=== PATIENT | male | born 1995 | race Caucasian/White ===

== ENCOUNTER 2021-03-07 13:04 | Emergency (ER) | payer OTHER ==
[2021-03-07 14:06] VITALS: BP 146/64; PULSE 92; RESP 18; TEMP 98.6
--- NOTE | 2021-03-07 14:06 | ED ---
General Adult HPI - General Source: patient, RN notes reviewed Mode of arrival: ambulatory Limitations: no limitations <Akira Thompson - Last Filed: 03/07/21 14:04> - History of Present Illness -: days(s) (1) Location: back (lumbar) Severity scale (1-10): 8 Quality: aching, constant Consistency: constant Improves with: none Worsens with: movement Associated Symptoms: denies other symptoms <Jenaro Barajas - Last Filed: 03/07/21 18:14> - General Stated complaint: back pain Time Seen by Provider: 03/07/21 13:45 - History of Present Illness Initial comments: 25-year-old male presents emergency Department chief complaint of low back pain. Patient states his been having issues over the last several years. Patient states he injured it while lifting weights. Patient states he bent over today and felt a pop. Patient's been having increasing low back pain. Patient had no prior imaging denies any bowel, bladder incontinence or retention or saddle anesthesias. No lower saddle paresthesias at this time he occasionally has pain radiates down into his legs. No abdominal pain no dysuria no hematuria. (Akira Thompson) This is a well-appearing 25-year-old male, alert and oriented 4, presents to emergency room with a family member complaining of low back pain. 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 He has never seen an orthopedic doctor but continues to have low back pain. He states that he exacerbated the back pain yesterday when he lifted his 40 pound dog. He states he is unable to take Flexeril because it makes him physically sick and nauseated. He denies any bowel or bladder incontinence. No fevers. (Jenaro Barajas) - Related Data Previous Rx's Medication Instructions Recorded Ibuprofen [Motrin] 600 mg PO Q8HR PRN #30 tab 03/07/21 Lidocaine 5% Patch [Lidoderm] 1 patch TOPICAL DAILY 14 Days #14 03/07/21 patch Allergies Allergy/AdvReac Type Severity Reaction Status Date / Time Cephalosporins Allergy Rash/Hives Verified 03/07/21 14:07 Penicillins Allergy Rash/Hives Verified 03/07/21 14:07 Review of Systems ROS Other: All systems not noted in ROS Statement are negative. <Dedoe,Akira M - Last Filed: 03/07/21 14:04> ROS Other: All systems not noted in ROS Statement are negative. <Jenaro Barajas - Last Filed: 03/07/21 18:14> ROS Statement: Those systems with pertinent positive or pertinent negative responses have been documented in the HPI. General Exam General appearance: alert, in no apparent distress Head exam: Present: atraumatic, normocephalic, normal inspection Eye exam: Present: normal appearance, EOMI. Absent: scleral icterus, conjunctival injection, periorbital swelling ENT exam: Present: normal exam, normal oropharynx, mucous membranes moist Neck exam: Present: normal inspection, full ROM. Absent: tenderness, meningismus, lymphadenopathy, thyromegaly Respiratory exam: Present: normal lung sounds bilaterally. Absent: respiratory distress, wheezes, rales, rhonchi, stridor Cardiovascular Exam: Present: regular rate, normal rhythm, normal heart sounds. Absent: systolic murmur, diastolic murmur, rubs, gallop, clicks GI/Abdominal exam: Present: soft. Absent: distended, tenderness, guarding, rebound, rigid Extremities exam: Present: normal inspection, full ROM, normal capillary refill. Absent: tenderness, pedal edema, joint swelling, calf tenderness Back exam: Present: normal inspection, full ROM, tenderness (ls spine), paraspinal tenderness (ls spine). Absent: CVA tenderness (R), CVA tenderness (L), rash noted Neurological exam: Present: alert, oriented X3, normal gait Psychiatric exam: Present: normal affect, normal mood Skin exam: Present: warm, dry, intact, normal color. Absent: rash, cyanosis, diaphoretic, petechiae, pallor <Jenaro Barajas - Last Filed: 03/07/21 18:14> Course Vital Signs 03/07/21 14:02 Temperature 98.6 F Pulse Rate 92 Respiratory 18 Rate Blood Pressure 146/64 O2 Sat by Pulse 96 Oximetry Medical Decision Making <Jenaro Barajas - Last Filed: 03/07/21 18:14> - Medical Decision Making This is a well-appearing 25-year-old male that presents to the emergency room with low back pain. Patient states he's had low back pain for several years however he exacerbated his pain when lifting his dog yesterday. X-ray of the LS-spine shows 5 lumbar vertebral bodies identified with satisfactory alignment no evidence of acute fracture or dislocation. There is no significant new disc space narrowing or subluxation had any lumbar level. Soft tissue appears unremarkable. Patient is able to ambulate with a steady gait, denies any bowel or bladder incontinence, no saddle anesthesia and no fevers. Pt was given toradol in the emergency room the Lidoderm patch. He was offered muscle relaxer and states that it makes him nauseous and declined. Upon discharge patient states he is feeling much better. He was given a prescription for Motrin and Lidoderm patches. He was directed to do low back exercises as provided and follow-up with orthopedics, return to the emergency room with a new or concerning symptoms. (Jenaro Barajas) Disposition <Akira Thompson - Last Filed: 03/07/21 14:04> Is patient prescribed a controlled substance at d/c from ED?: No Time of Disposition: 16:06 <Jenaro Barajas - Last Filed: 03/07/21 18:14> Clinical Impression: Back pain Disposition: HOME SELF-CARE Condition: Good Instructions (If sedation given, give patient instructions): Back Pain (ED), Lower Back Exercises (ED) Additional Instructions: Take Tylenol and Motrin for back pain. Use Lidoderm patches and follow-up with orthopedics for continuation of care. Return to the emergency room if any new or concerning symptoms. Prescriptions: Lidocaine 5% Patch [Lidoderm] 1 patch TOPICAL DAILY 14 Days #14 patch Ibuprofen [Motrin] 600 mg PO Q8HR PRN #30 tab PRN Reason: Pain Referrals: Linden Chanel MD [Primary Care Provider] - 1-2 days Ian Bronson MD [STAFF PHYSICIAN] - 1-2 days
--- NOTE | 2021-03-07 14:40 | XR ---
EXAMINATION TYPE: XR lumbar spine with bend/flex DATE OF EXAM: 03/07/2021 CLINICAL HISTORY: Low back pain after lifting injury several years ago. TECHNIQUE: Frontal, lateral, and dynamic flexion and extension lateral images of the lumbar spine are obtained. COMPARISON: None FINDINGS: There are 5 lumbar type vertebral bodies identified. The lumbar spine shows satisfactory alignment without evidence of acute fracture or dislocation. Vertebral body heights and disk space he ights are within normal limits. Dynamic imaging shows limited flexion, but there is no significant new disc space narrowing or focal subluxation at any lumbar level identified. The overlying soft tiss ue appears unremarkable. IMPRESSION: As above spine.
[2021-03-07] MEDS ORDERED: ORPHENADRINE 30 MG/ML 2 ML VIAL IM STA (15:40)
[2021-03-07] MEDS ORDERED: KETOROLAC 15 MG/ML 1 ML VIAL IM STA (15:40)
[2021-03-07] MEDS ORDERED: LIDOCAINE 5% PATCH TOPICAL SCH (16:00)
== END 2021-03-07 16:29 | disposition home or self-care (01) ==
LOC: EC 13:04
DX: M54.59 Other low back pain (principal); Z88.0 Allergy status to penicillin
CPT/HCPCS: 99283; 96372; 72114; J1885

== ENCOUNTER 2022-11-17 16:59 | Observation (INO) | payer OTHER ==
[2022-11-17] MEDS ORDERED: SODIUM CHLORIDE 0.9% 1,000 ML IV STA ×3 (17:38→18:17)
[2022-11-17] MEDS ORDERED: KETOROLAC 15 MG/ML 1 ML VIAL IVP STA (17:38)
[2022-11-17] MEDS ORDERED: ONDANSETRON 4 MG/2 ML VIAL IVP STA (17:38)
[2022-11-17] MEDS ORDERED: PANTOPRAZOLE 40 MG/10 ML VIAL IVP STA (17:38)
[2022-11-17] MEDS ORDERED: MORPHINE SULFATE 4 MG/ML SYRINGE IVP STA (17:39)
[2022-11-17 18:02] LABS: Basophils # (A) 0.1 k/uL (0-0.2); Basophils % (A) 1 %; Eosinophils # (A) 0.4 k/uL (0-0.7); Eosinophils % (A) 4 %; HCT 47.4 % (39.0-53.0); Lymphocytes # (A) 3.2 k/uL (1.0-4.8); Lymphocytes % (A) 33 %; MCH 28.2 pg (25.0-35.0); MCHC 33.7 g/dL (31.0-37.0); MCV 83.9 fL (80.0-100.0); Mean Platelet Volume 7.5; Monocytes # (A) 0.5 k/uL (0-1.0); Monocytes % (A) 5 %; Neutrophils # (A) 5.6 k/uL (1.3-7.7); Neutrophils % (A) 57 %; Platelet Count 300 k/uL (150-450); RBC 5.65 m/uL (4.30-5.90); RDW 13.6 % (11.5-15.5); WBC 9.7 k/uL (3.8-10.6)
[2022-11-17 18:03] LABS: Appearance,Urine Clear (Clear); Bilirubin,Urine Negative (Negative); Blood,Urine Negative (Negative); Color,Urine Light Yellow; Glucose,Urine (UA) Negative (Negative); Ketones,Urine Negative (Negative); Leukocyte Esterase,Urine Negative (Negative); Nitrite,Urine Negative (Negative); Protein,Urine Negative (Negative); Specific Gravity,Urine 1.017 (1.001-1.035); Urobilinogen,Urine <2.0 mg/dL (<2.0)
[2022-11-17 18:14] LABS: ALT 70 U/L (4-49); AST 41 U/L (17-59); African American GFR (CKD) >90 (>60 ml/min/1.73 sqM); Alkaline Phosphatase 50 U/L (38-126); Amylase 57 U/L (30-110); Anion Gap 14 mmol/L; Blood Urea Nitrogen 10 mg/dL (9-20); Calcium 10.2 mg/dL (8.4-10.2); Carbon Dioxide 27 mmol/L (22-30); Chloride 101 mmol/L (98-107); Glucose 99 mg/dL (74-99); Lipase 47 U/L (23-300); Non-African American GFR(CKD) >90 (>60 ml/min/1.73 sqM); Sodium 142 mmol/L (137-145); Total Bilirubin 0.8 mg/dL (0.2-1.3); Total Protein 8.2 g/dL (6.3-8.2)
[2022-11-17 18:15] LABS: Potassium 4.5 mmol/L (3.5-5.1)
[2022-11-17 18:23] LABS: INR 0.9 (<1.2); Partial Thromboplastin Time 24.2 sec (22.0-30.0)
--- NOTE | 2022-11-17 18:56 | US ---
EXAMINATION TYPE: US gallbladder DATE OF EXAM: 11/17/2022 COMPARISON: NONE CLINICAL INDICATION: Male, 27 years old with history of ruq pain, nausea; Pain TECHNIQUE: Multiple sonographic images of the right upper quadrant are obtained. FINDINGS: EXAM MEASUREMENTS: Liver Length: 19.9 cm Gallbladder Wall: 0.2 cm CBD: 0.6 cm Right Kidney: 10.6 x 5.1 x 5.4 cm DEVULCANIZER OPERATOR NOTES: Large pt body habitus, unable to tolerate probe pressure during exam- difficult to scan Pancreas: Obscured by bowel gas Liver: Enlarged, very difficult to penetrate Gallbladder: wnl Evidence for sonographic Bronson's sign: Yes CBD: wnl Right Kidney: No evidence of hydro, lower pole gassed out IMPRESSION: 1. Hepatomegaly correlate for hepatocellular disease. 2. No gallstones. Common bile duct measures at the upper limits of normal at 6 mm correlate clinicall y.
[2022-11-17] MEDS ORDERED: LORazepam 2 MG/ML INJ IV STA (19:09)
--- NOTE | 2022-11-17 19:54 | CT ---
EXAMINATION TYPE: CT angio abdomen pelvis DATE OF EXAM: 11/17/2022 7:19 PM COMPARISON: None HISTORY: Elevated LA, RUQ abdominal pain. CT DLP: 2305.8 mGycm Automated exposure control for dose reduction was used. TECHNIQUE: Performed with IV Contrast, patient injected with 100 cc mL of Isovue 370. . FINDINGS: Shotty subcentimeter lymph nodes are seen in the abdomen. Lungs are clear. Liver is enlarged with diffuse low attenuation compatible with hepatic steatosis. No hydronephrosis. There is a nonobstructing 1 mm punctate left lower pole renal calculus. Pancreas a nd adrenal glands normal. Spleen homogeneous. Celiac trunk and SMA enhance normally. The hepatic artery is diminutive. Correlate clinically. Bowel gas pattern nonspecific. No evidence of obstruction. Appendix normal. Bladder partially distend ed. No significant wall thickening. No free air or free fluid. Aorta of normal caliber with no eviden ce of aneurysm. Retroaortic left renal vein incidentally noted. No gallstones. IMPRESSION: 1. HEPATOMEGALY CORRELATE FOR HEPATOCELLULAR DISEASE\HEPATIC STEATOSIS. 2. PUNCTATE NONOBSTRUCTING 1 MM LOWER POLE LEFT RENAL CALCULUS.
[2022-11-17] MEDS ORDERED: KETOROLAC 15 MG/ML 1 ML VIAL IVP PRN (22:19)
[2022-11-17] MEDS ORDERED: NALOXONE 0.4 MG/ML 1 ML VIAL IV PRN (22:19)
[2022-11-17] MEDS ORDERED: ONDANSETRON 4 MG/2 ML VIAL IVP PRN (22:19)
--- NOTE | 2022-11-17 22:22 | ED ---
General Adult HPI - General Chief complaint: Abdominal Pain Stated complaint: R side pain Time Seen by Provider: 11/17/22 17:05 Source: patient, RN notes reviewed, old records reviewed Mode of arrival: ambulatory Limitations: no limitations - History of Present Illness Initial comments: Patient is a 27-year-old male who presents emergency Department complaining of abdominal pain for the last 2-3 days. He endorses right-sided abdominal pain. Intermittent nausea but no vomiting. Denies any dysuria or hematuria. Denies any constipation, diarrhea. Denies any chest pain or shortness of breath. Denies any fevers or chills. No other acute complaints at this time. Presents for further evaluation at this time. - Related Data Home Medications Medication Instructions Recorded Confirmed Levothyroxine Sodium [Synthroid] 25 mcg PO DAILY@05011/17/22 11/17/22 lamoTRIgine [LaMICtal] 200 mg PO DAILY@0500 11/17/22 11/17/22 Allergies Allergy/AdvReac Type Severity Reaction Status Date / Time Cephalosporins Allergy Rash/Hives Verified 11/17/22 19:42 Penicillins Allergy Rash/Hives Verified 11/17/22 19:42 Review of Systems ROS Statement: Those systems with pertinent positive or pertinent negative responses have been documented in the HPI. Review of Systems: CONST: Denies fever EYES: Denies blurry vision ENT: Denies nasal congestion C/V: Denies Chest pain RESP: Denies shortness of breath GI: Endorses abdominal pain : Denies dysuria SKIN: Denies rash. MSK: Denies joint pain. NEURO: Denies headache ROS Other: All systems not noted in ROS Statement are negative. Past Medical History Past Medical History: Seizure Disorder, Thyroid Disorder History of Any Multi-Drug Resistant Organisms: None Reported Past Surgical History: Ear Surgery Additional Past Surgical History / Comment(s): neck surgery Past Psychological History: No Psychological Hx Reported Smoking Status: Current every day smoker Past Alcohol Use History: Occasional Past Drug Use History: Marijuana General Exam - General Exam Comments Initial Comments: General: Appears in mild distress. HEAD: Normal with no signs of head trauma. EYES: PERRLA, EOMI, conjunctiva normal, no discharge. ENT: Hearing grossly intact, normal oropharynx. RESPIRATORY: Clear breath sounds bilaterally. No wheezes, rales, or rhonchi. C/V: Regular rate and rhythm. S1 and S2 auscultated, no edema, peripheral pulses 2+ and intact throughout ABD: Abdomen is soft, nondistended. Tender to palpation and specifically over the right side of the abdomen. No guarding. No rebound tenderness. No peritoneal signs. No significant flank pain. No CVA tenderness to percussion. EXT: Normal range of motion, no obvious deformity SKIN: No rashes or lesions observed on exposed skin. NEURO: Alert and oriented 4. Limitations: no limitations Course Vital Signs 11/17/22 11/17/22 11/17/22 17:02 18:08 21:00 Temperature 98.4 F Pulse Rate 67 89 Respiratory 16 16 Rate Blood Pressure 139/85 126/82 117/68 O2 Sat by Pulse 98 98 Oximetry Medical Decision Making - Medical Decision Making Was pt. sent in by a medical professional or institution (, PA, [employer], urgent care, hospital, or snf...) When possible be specific @ -No Did you speak to anyone other than the patient for history (EMS, parent, family, police, friend...)? What history was obtained from this source @ -No Did you review nursing and triage notes (agree or disagree)? Why? @ -I reviewed and agree with nursing and triage notes Were old charts reviewed (outside hosp., previous admission, EMS record, old EKG, old radiological studies, urgent care reports/EKG's, snf records)? Report findings @ -No old charts were reviewed Differential Diagnosis (chest pain, altered mental status, abdominal pain women, abdominal pain men, vaginal bleeding, weakness, fever, dyspnea, syncope, headache, dizziness, GI bleed, back pain, seizure, CVA, palpatations, mental health, musculoskeletal)? @ -Differential Abdominal Pain Men: Appendicitis, cholecystitis, diverticulosis, ischemic bowel, pancreatitis, hepatitis, UTI, gastroenteritis, AAA, incarcerated hernia, bowel obstruction, constipation, inflammatory bowel, hepatitis, peptic ulcer disease, splenic infarction, perforated viscus, testicular torsion, this is not meant to be an all-inclusive list EKG interpreted by me (3pts min.). @ -None done X-rays interpreted by me (1pt min.). @ -None done CT interpreted by me (1pt min.). @ -CTA of the abdomen and pelvis reveals no obvious abnormality other than hepatomegaly. Patient has a non-complicated 1 mm left renal calculus. U/S interpreted by me (1pt. min.). @ -Ultrasound reveals no evidence of cholecystitis. What testing was considered but not performed or refused? (CT, X-rays, U/S, labs)? Why? @ -None What meds were considered but not given or refused? Why? @ -None Did you discuss the management of the patient with other professionals (professionals i.e. DrAly, PA, [employer], lab, RT, psych nurse, high school social studies tutor, carpenter labor supervisor, teacher, marketing officer, case resource manager)? Give summary @ -I spoke with the admitting team, ENRIKE Desai of [facility] accepted the admission. Was smoking cessation discussed for >3mins.? @ -No Was critical care preformed (if so, how long)? @ -No Were there social determinants of health that impacted care today? How? (Homelessness, low income, unemployed, alcoholism, drug addiction, transportation, low edu. Level, literacy, decrease access to med. care, snf, rehab)? @ -No Was there de-escalation of care discussed even if they declined (Discuss DNR or withdrawal of care, Hospice)? DNR status @ -No What co-morbidities impacted this encounter? (DM, HTN, Smoking, COPD, CAD, Cancer, CVA, ARF, Chemo, Hep., AIDS, mental health diagnosis, sleep apnea, morbid obesity)? @ -None Was patient admitted / discharged? Hospital course, mention meds given and route, prescriptions, significant lab abnormalities, going to OR and other per tinent info. @ -Based on the patient's presentation and physical exam, I'm concerned for acute intra-abdominal process for the patient's current symptoms. We'll obtain abdominal labs as well as bilateral ultrasound. He'll be symptomatically treated with IV fluids, Toradol, morphine, Zofran, Protonix. Patient was in agreement this plan. Vital signs within acceptable limits. Gallbladder ultrasound unremarkable. Labs remarkable for lactic acidosis 5.9 as well as ALT of 70. No other significant findings. Lactic acidosis likely related to hepatocellular disease as well as dehydration as he has not been eating and drinking much. Remainder the patient's labs are completely unremarkable. Alcohol level added on and is negative. We will obtain a CT angiogram for abdominal pain out of proportion to exam to evaluate for any intra-abdominal process. Patient in agreement this plan. I do not believe that the lactic acid is related to infection. CT unremarkable. Shows hepatomegaly an uncomplicated right nephrolithiasis. On reevaluation, patient is resting comfortably. Due to his elevated lactic acid as well as his abdominal pain and did want to admit him to the hospital for further monitoring. He was in agreement this plan. He received a total of 2 L fluid bolus was placed on maintenance fluids. I spoke with the admitting team, ENRIKE Desai of [facility] accepted the admission. Undiagnosed new problem with uncertain prognosis? @ -No Drug Therapy requiring intensive monitoring for toxicity (Heparin, Nitro, Insulin, Cardizem)? @ -No Were any procedures done? @ -No Diagnosis/symptom? @ -Lactic acidosis of unknown etiology, likely related to hepatocellular disease and dehydration Acute, or Chronic, or Acute on Chronic? @ -Acute Uncomplicated (without systemic symptoms) or Complicated (systemic symptoms)? @ -Uncomplicated Side effects of treatment? @ -No Exacerbation, Progression, or Severe Exacerbation? @ -No Poses a threat to life or bodily function? How? (Chest pain, USA, ND, pneumonia, PE, COPD, DKA, ARF, appy, cholecystitis, CVA, Diverticulitis, Homicidal, Suicidal, threat to staff... and all critical care pts) @ -Potentially Diagnosis/symptom? @ -Abdominal pain of unknown etiology Acute, or Chronic, or Acute on Chronic? @ -Acute Uncomplicated (without systemic symptoms) or Complicated (systemic symptoms)? @ -Complicated Side effects of treatment? @ -none Exacerbation, Progression, or Severe Exacerbation] @ -no Poses a threat to life or bodily function? @ -no - Lab Data Result diagrams: 11/17/22 17:47 11/17/22 17:47 Lab Results 11/17/22 11/17/22 11/17/22 Range/Units 17:47 17:47 17:47 WBC 9.7 (3.8-10.6) k/uL RBC 5.65 (4.30-5.90) m/uL Hgb 16.0 (13.0-17.5) gm/dL Hct 47.4 (39.0-53.0) % MCV 83.9 (80.0-100.0) fL MCH 28.2 (25.0-35.0) pg MCHC 33.7 (31.0-37.0) g/dL RDW 13.6 (11.5-15.5) % Plt Count 300 (150-450) k/uL MPV 7.5 Neutrophils % 57 % Lymphocytes % 33 % Monocytes % 5 % Eosinophils % 4 % Basophils % 1 % Neutrophils # 5.6 (1.3-7.7) k/uL Lymphocytes # 3.2 (1.0-4.8) k/uL Monocytes # 0.5 (0-1.0) k/uL Eosinophils # 0.4 (0-0.7) k/uL Basophils # 0.1 (0-0.2) k/uL PT 10.0 (9.0-12.0) sec INR 0.9 (<1.2) APTT 24.2 (22.0-30.0) sec Sodium (137-145) mmol/L Potassium (3.5-5.1) mmol/L Chloride (98-107) mmol/L Carbon Dioxide (22-30) mmol/L Anion Gap mmol/L BUN (9-20) mg/dL Creatinine (0.66-1.25) mg/dL Est GFR (CKD-EPI)AfAm (>60 ml/min/1.73 sqM) Est GFR (CKD-EPI)NonAf (>60 ml/min/1.73 sqM) Glucose (74-99) mg/dL Lactic Ac Sepsis Rflx Plasma Lactic Acid Alberto (0.7-2.0) mmol/L Calcium (8.4-10.2) mg/dL Total Bilirubin (0.2-1.3) mg/dL AST (17-59) U/L ALT (4-49) U/L Alkaline Phosphatase (38-126) U/L Total Protein (6.3-8.2) g/dL Albumin (3.5-5.0) g/dL Amylase (30-110) U/L Lipase (23-300) U/L Urine Color Light Yellow Urine Appearance Clear (Clear) Urine pH 6.0 (5.0-8.0) Ur Specific Carnegie 1.017 (1.001-1.035) Urine Protein Negative (Negative) Urine Glucose (UA) Negative (Negative) Urine Ketones Negative (Negative) Urine Blood Negative (Negative) Urine Nitrite Negative (Negative) Urine Bilirubin Negative (Negative) Urine Urobilinogen <2.0 (<2.0) mg/dL Ur Leukocyte Esterase Negative (Negative) Serum Alcohol mg/dL 11/17/22 11/17/22 11/17/22 Range/Units 17:47 17:47 18:14 WBC (3.8-10.6) k/uL RBC (4.30-5.90) m/uL Hgb (13.0-17.5) gm/dL Hct (39.0-53.0) % MCV (80.0-100.0) fL MCH (25.0-35.0) pg MCHC (31.0-37.0) g/dL RDW (11.5-15.5) % Plt Count (150-450) k/uL MPV Neutrophils % % Lymphocytes % % Monocytes % % Eosinophils % % Basophils % % Neutrophils # (1.3-7.7) k/uL Lymphocytes # (1.0-4.8) k/uL Monocytes # (0-1.0) k/uL Eosinophils # (0-0.7) k/uL Basophils # (0-0.2) k/uL PT (9.0-12.0) sec INR (<1.2) APTT (22.0-30.0) sec Sodium 142 (137-145) mmol/L Potassium 4.5 (3.5-5.1) mmol/L Chloride 101 (98-107) mmol/L Carbon Dioxide 27 (22-30) mmol/L Anion Gap 14 mmol/L BUN 10 (9-20) mg/dL Creatinine 0.87 (0.66-1.25) mg/dL Est GFR (CKD-EPI)AfAm >90 (>60 ml/min/1.73 sqM) Est GFR (CKD-EPI)NonAf >90 (>60 ml/min/1.73 sqM) Glucose 99 (74-99) mg/dL Lactic Ac Sepsis Rflx Y Plasma Lactic Acid Alberto 5.9 H* (0.7-2.0) mmol/L Calcium 10.2 (8.4-10.2) mg/dL Total Bilirubin 0.8 (0.2-1.3) mg/dL AST 41 (17-59) U/L ALT 70 H (4-49) U/L Alkaline Phosphatase 50 (38-126) U/L Total Protein 8.2 (6.3-8.2) g/dL Albumin 5.0 (3.5-5.0) g/dL Amylase 57 (30-110) U/L Lipase 47 (23-300) U/L Urine Color Urine Appearance (Clear) Urine pH (5.0-8.0) Ur Specific [place] (1.001-1.035) Urine Protein (Negative) Urine Glucose (UA) (Negative) Urine Ketones (Negative) Urine Blood (Negative) Urine Nitrite (Negative) Urine Bilirubin (Negative) Urine Urobilinogen (<2.0) mg/dL Ur Leukocyte Esterase (Negative) Serum Alcohol mg/dL 11/17/22 Range/Units 19:12 WBC (3.8-10.6) k/uL RBC (4.30-5.90) m/uL Hgb (13.0-17.5) gm/dL Hct (39.0-53.0) % MCV (80.0-100.0) fL MCH (25.0-35.0) pg MCHC (31.0-37.0) g/dL RDW (11.5-15.5) % Plt Count (150-450) k/uL MPV Neutrophils % % Lymphocytes % % Monocytes % % Eosinophils % % Basophils % % Neutrophils # (1.3-7.7) k/uL Lymphocytes # (1.0-4.8) k/uL Monocytes # (0-1.0) k/uL Eosinophils # (0-0.7) k/uL Basophils # (0-0.2) k/uL PT (9.0-12.0) sec INR (<1.2) APTT (22.0-30.0) sec Sodium (137-145) mmol/L Potassium (3.5-5.1) mmol/L Chloride (98-107) mmol/L Carbon Dioxide (22-30) mmol/L Anion Gap mmol/L BUN (9-20) mg/dL Creatinine (0.66-1.25) mg/dL Est GFR (CKD-EPI)AfAm (>60 ml/min/1.73 sqM) Est GFR (CKD-EPI)NonAf (>60 ml/min/1.73 sqM) Glucose (74-99) mg/dL Lactic Ac Sepsis Rflx Plasma Lactic Acid Alberto (0.7-2.0) mmol/L Calcium (8.4-10.2) mg/dL Total Bilirubin (0.2-1.3) mg/dL AST (17-59) U/L ALT (4-49) U/L Alkaline Phosphatase (38-126) U/L Total Protein (6.3-8.2) g/dL Albumin (3.5-5.0) g/dL Amylase (30-110) U/L Lipase (23-300) U/L Urine Color Urine Appearance (Clear) Urine pH (5.0-8.0) Ur Specific [place] (1.001-1.035) Urine Protein (Negative) Urine Glucose (UA) (Negative) Urine Ketones (Negative) Urine Blood (Negative) Urine Nitrite (Negative) Urine Bilirubin (Negative) Urine Urobilinogen (<2.0) mg/dL Ur Leukocyte Esterase (Negative) Serum Alcohol <10 mg/dL Disposition Clinical Impression: Lactic acidosis, Abdominal pain of unknown etiology, Hepatomegaly Disposition: ADMITTED IP TO THIS [facility] Condition: Stable Referrals: Alvaro Lyn MD [Primary Care Provider] - 1-2 days Time of Disposition: 21:35
[2022-11-18] MEDS: MORPHINE SULFATE 4 MG/ML SYRINGE IV PRN ×4 (01:00→18:08)
[2022-11-18 06:53] LABS: Basophils # (A) 0.1 k/uL (0-0.2); Basophils % (A) 1 %; Eosinophils # (A) 0.3 k/uL (0-0.7); Eosinophils % (A) 3 %; HCT 41.1 % (39.0-53.0); Lymphocytes # (A) 3.2 k/uL (1.0-4.8); Lymphocytes % (A) 36 %; MCH 28.4 pg (25.0-35.0); MCHC 34.1 g/dL (31.0-37.0); MCV 83.4 fL (80.0-100.0); Monocytes # (A) 0.5 k/uL (0-1.0); Monocytes % (A) 6 %; Neutrophils # (A) 4.7 k/uL (1.3-7.7); Neutrophils % (A) 53 %; Platelet Count 256 k/uL (150-450); RBC 4.93 m/uL (4.30-5.90); RDW 13.3 % (11.5-15.5); WBC 8.8 k/uL (3.8-10.6)
[2022-11-18 07:13] LABS: African American GFR (CKD) >90 (>60 ml/min/1.73 sqM); Anion Gap 11 mmol/L; Blood Urea Nitrogen 14 mg/dL (9-20); Calcium 8.7 mg/dL (8.4-10.2); Carbon Dioxide 23 mmol/L (22-30); Chloride 106 mmol/L (98-107); Glucose 93 mg/dL (74-99); Non-African American GFR(CKD) >90 (>60 ml/min/1.73 sqM); Potassium 4.5 mmol/L (3.5-5.1); Sodium 140 mmol/L (137-145)
[2022-11-18] MEDS: LEVOTHYROXINE 25 MCG TAB PO SCH (08:36)
[2022-11-18] MEDS: lamoTRIgine 100 MG TAB PO SCH (08:36)
--- NOTE | 2022-11-18 12:37 | P.HPIM ---
History of Present Illness H&P Date: 11/18/22 History of present illness; patient is a 27-year-old gentleman with no significa nt past medical history presented to the ER because of abdominal pain. Patient stated that he was all right 2 days ago when he started having right-sided abdominal pain. Abdominal pain was intermittent, associated with nausea but no vomiting. Denies any altered bowel movements. Denies any blood in the stools. Denies any loss of appetite. Denies any fever or chills. Because of his abdominal pain, he came to ER Initial lab work done in the ER showed WBC was 9.7, hemoglobin 16, platelet count 300, sodium 142, potassium 4.5, BUN 10, creatinine 0.87, lactate 5.9 UA negative for infection Serum alcohol level less than 10 Ultrasound abdominal done showed hepatomegaly, correlate for hepatocellular disease. CT abdomen and pelvis done showed hepatomegaly, showed 1 mL lower pole renal calculus Patient admitted to medicine service REVIEW OF SYSTEMS: CONSTITUTIONAL: No fever, no malaise, no fatigue. HEENT: No recent visual problems or hearing problems. Denied any sore throat. CARDIOVASCULAR: No chest pain, orthopnea, PND, no palpitations, no syncope. PULMONARY: No shortness of breath, no cough, no hemoptysis. GASTROINTESTINAL: As mentioned in HPI NEUROLOGICAL: No headaches, no weakness, no numbness. HEMATOLOGICAL: Denies any bleeding or petechiae. GENITOURINARY: Denies any burning micturition, frequency, or urgency. MUSCULOSKELETAL/RHEUMATOLOGICAL: Denies any joint pain, swelling, or any muscle pain. ENDOCRINE: Denies any polyuria or polydipsia. The rest of the 14-point review of systems is negative. PHYSICAL EXAMINATION: GENERAL: The patient is alert and oriented x3, not in any acute distress. Well developed, well nourished. HEENT: Pupils are round and equally reacting to light. EOMI. No scleral icterus. No conjunctival pallor. Normocephalic, atraumatic. No pharyngeal erythema. No thyromegaly. CARDIOVASCULAR: S1 and S2 present. No murmurs, rubs, or gallops. PULMONARY: Chest is clear to auscultation, no wheezing or crackles. ABDOMEN: Soft, tenderness right upper quadrant, no guarding. No palpable organomegaly. MUSCULOSKELETAL: No joint swelling or deformity. EXTREMITIES: No cyanosis, clubbing, or pedal edema. NEUROLOGICAL: Gross neurological examination did not reveal any focal deficits. SKIN: No rashes. Assessment and plan Abdominal pain Lactic acidosis Hepatomegaly Nonobstructing left renal calculus Monitor vital signs Monitor CBC Monitor CMP Ordered hepatitis panel Continue IV fluids Continue antiemetics Continue pain management ID consulted Surgery consulted Labs and medication were reviewed.. Continue same treatment. Continue with symptomatic treatment. Resume home medication. Monitor labs and vitals. DVT and GI prophylaxis. Further recommendations as per clinical course of the patient Dictation was produced using [employer] dictation software. please excuse any grammatical, word or spelling errors. Past Medical History Past Medical History: Seizure Disorder, Thyroid Disorder History of Any Multi-Drug Resistant Organisms: None Reported Past Surgical History: Ear Surgery Additional Past Surgical History / Comment(s): neck surgery Past Psychological History: No Psychological Hx Reported Smoking Status: Current every day smoker Past Alcohol Use History: Occasional Past Drug Use History: Marijuana Medications and Allergies Home Medications Medication Instructions Recorded Confirmed Type Levothyroxine Sodium [Synthroid] 25 mcg PO DAILY@0500 11/17/22 11/17/22 History lamoTRIgine [LaMICtal] 200 mg PO DAILY@0500 11/17/22 11/17/22 History Allergies Allergy/AdvReac Type Severity Reaction Status Date / Time Cephalosporins Allergy Rash/Hives Verified 11/17/22 19:42 Penicillins Allergy Rash/Hives Verified 11/17/22 19:42 Physical Exam Vitals: Vital Signs Temp Pulse Pulse Resp BP BP Pulse Ox 11/18/22 06:55 98 F 58 L 17 107/68 98 11/18/22 02:00 97.8 F 62 16 127/67 94 L 11/18/22 00:30 98.2 F 68 16 140/63 98 11/17/22 23:00 95 16 124/71 98 11/17/22 21:00 89 16 117/68 98 11/17/22 18:08 126/82 11/17/22 17:02 98.4 F 67 16 139/85 98 Intake and Output 11/17/22 11/18/22 11/18/22 22:59 06:59 14:59 Other: # Voids 1 Weight 120.202 kg Results CBC & Chem 7: 11/18/22 06:09 10/01/23 06:09 Labs: Abnormal Lab Results - Last 24 Hours (Table) 11/17/22 11/17/22 Range/Units 17:47 17:47 Plasma Lactic Acid Alberto 5.9 H* (0.7-2.0) mmol/L ALT 70 H (4-49) U/L
[2022-11-18] MEDS ORDERED: HYDROcodone/APAP 5-325MG 1 EACH TAB PO PRN (13:36)
[2022-11-18 15:24] LABS: Hepatitis A Antibody IgM Nonreactive; Hepatitis B Core IgM Nonreactive; Hepatitis B Surface Antigen Nonreactive; Hepatitis C IgG Antibody Nonreactive
--- NOTE | 2022-11-18 22:58 | P.CONS ---
History of Present Illness - Reason for Consult Consult date: 11/18/22 Hepatitis questionable Requesting physician: Nick Coello - Chief Complaint Abdominal pain x few days - History of Present Illness Patient is a 27-year-old male with a past medical history significant for heavy drinking few years ago still drinks but occasionally and also have a history of IV drug use with the patient mention he has quit patient presenting to the hospital last night for evaluation of increasing abdominal pain that has been getting worse over the last 2 to 3 days patient pain is mostly in the right upper abdominal area describing it to be sharp that at times eases but does not go completely away intensity can be as high as 10 out of 10 with intermittent nausea but no vomiting denies any diarrhea or constipation or high-grade fever on presentation to the hospital patient was afebrile and no fever has been recorded subsequently patient was not tachycardic hypotensive or hypoxic patient did have a normal white count he did have a elevated lactic acid of 5.9 has subsequent normalized ALT was 70 urine is negative hepatitis panel was negative alcohol level was less than [address] a [address] abdominal pelvis hepatomegaly correlate for hepatocellular disease and left renal calculus infectious he was consulted with concern for hepatitis questionable Review of Systems Positive point and negatives has been mentioned in the HPI, complete review of systems was performed and all other systems are negative Past Medical History Past Medical History: Seizure Disorder, Thyroid Disorder History of Any Multi-Drug Resistant Organisms: None Reported Past Surgical History: Ear Surgery Additional Past Surgical History / Comment(s): neck surgery Past Psychological History: No Psychological Hx Reported Smoking Status: Current every day smoker Past Alcohol Use History: Occasional Past Drug Use History: Marijuana Medications and Allergies Home Medications Medication Instructions Recorded Confirmed Type Levothyroxine Sodium [Synthroid] 25 mcg PO DAILY@0500 11/17/22 11/17/22 History lamoTRIgine [LaMICtal] 200 mg PO DAILY@0500 11/17/22 11/17/22 History HYDROcodone/APAP 5-325MG [[place] 1 each PO Q6HR PRN #10 tab 11/19/22 Rx 5-325] Allergies Allergy/AdvReac Type Severity Reaction Status Date / Time Cephalosporins Allergy Rash/Hives Verified 11/17/22 19:42 Penicillins Allergy Rash/Hives Verified 11/17/22 19:42 Physical Exam Vitals: Vital Signs Temp Pulse Pulse Resp BP BP Pulse Ox 11/18/22 06:55 98 F 58 L 17 107/68 98 11/18/22 02:00 97.8 F 62 16 127/67 94 L 11/18/22 00:30 98.2 F 68 16 140/63 98 11/17/22 23:00 95 16 124/71 98 11/17/22 21:00 89 16 117/68 98 11/17/22 18:08 126/82 11/17/22 17:02 98.4 F 67 16 139/85 98 Intake and Output 11/17/22 11/18/22 11/18/22 22:59 06:59 14:59 Other: # Voids 1 Weight 120.202 kg GENERAL DESCRIPTION: Middle-aged male lying in bed, no distress. No tachypnea or accessory muscle of respiration use. HEENT: Shows Pallor , no scleral icterus. Oral mucous membrane is dry. No pharyngeal erythema or thrush NECK: Trachea central, no thyromegaly. LUNGS: Unlabored breathing. Clear to auscultation anteriorly. No wheeze or crackle. HEART: S1, S2, regular rate and rhythm. No loud murmur ABDOMEN: Soft, mild right upper quadrant tenderness , noguarding or rigidity EXTREMITIES: No edema of feet. SKIN: No rash, no masses palpable. NEUROLOGICAL: The patient is awake, alert, oriented x3, mood and affect normal. Results CBC & Chem 7: 11/19/22 04:53 11/19/22 04:53 Labs: Abnormal Lab Results - Last 24 Hours (Table) 11/17/22 11/17/22 Range/Units 17:47 17:47 Plasma Lactic Acid Alberto 5.9 H* (0.7-2.0) mmol/L ALT 70 H (4-49) U/L Assessment and Plan (1) Abdominal pain of unknown etiology Status: Acute Code(s): R10.9 - UNSPECIFIED ABDOMINAL PAIN SNOMED Code(s): 903399420 (2) Hepatomegaly Status: Acute Code(s): R16.0 - HEPATOMEGALY, NOT ELSEWHERE CLASSIFIED SNOMED Code(s): 39349328 Plan: 1patient presented hospital right upper quadrant abdominal pain in this patient who also have a mild tenderness right upper quadrant area and a question of possible hepatocellular disease CT abdominal pelvis shows mostly hepatomegaly but did not mention any abnormality to the gallbladder patient did have mildly elevated ALT as well within the normal and the patient do have a risk factor for hepatitis however hepatitis B and C were negative as well as A 2-patient with a cephalosporin and penicillin allergy that will limit the number of antibiotics safe to use 3-we will check inflammatory markers and await HIDA scan 4-we will hold on any empiric antibiotic therapy at this point as patient does not look toxic no fever or elevated white count We will follow on clinical condition and cultures to further adjust medication if needed Thank you for this consultation we will follow the patient along with you Dictation was produced using [employer] dictation software. please excuse any grammatical, word or spelling errors. Time with Patient: Greater than 30
[2022-11-19] MEDS: MORPHINE SULFATE 4 MG/ML SYRINGE IV PRN (00:42)
[2022-11-19] MEDS: lamoTRIgine 100 MG TAB PO SCH (05:01)
[2022-11-19] MEDS: LEVOTHYROXINE 25 MCG TAB PO SCH (05:01)
[2022-11-19 07:35] VITALS: RESP 16
[2022-11-19 08:59] LABS: Eosinophils # (A) 0.27 X 10*3/uL (0.04-0.35); Eosinophils % (A) 2.7 %; HCT 44.3 % (39.6-50.0); HGB 15.1 d/dL (13.0-17.0); Lymphocytes # (A) 3.78 X 10*3/uL (0.90-5.00); Lymphocytes % (A) 38.3 %; MCH 27.9 pg (27.0-32.0); MCHC 34.1 d/dL (32.0-37.0); MCV 81.9 FL (80.0-97.0); Mean Platelet Volume 9.9 FL (9.5-12.2); Monocytes # (A) 0.53 X 10*3/uL (0.20-1.00); Monocytes % (A) 5.4 %; NRBC Per 100 WBC 0 X 10*3/uL (0.00-0.01); Neutrophils # (A) 5.16 X 10*3/uL (1.80-7.70); Neutrophils % (A) 52.4 %; Platelet Count 308 X 10*3/uL (140-440); RBC 5.41 X 10*6/uL (4.40-5.60); RDW 12.9 % (11.5-14.5); WBC 9.86 X 10*3/uL (4.50-10.00)
--- NOTE | 2022-11-19 10:18 | NM ---
Nuclear medicine hepatobiliary scan. HISTORY: Pain. DOSAGE: The patient received 0.0024 CCK micrograms and 4.9 mCi of Technetium 99m Choletec. FINDINGS: There is normal hepatic extraction. The gallbladder is seen by 60 minutes. There is bilia ry to bowel clearance by 16 minutes. Ejection fraction is 53%. IMPRESSION: 1. Gallbladder fills at the upper limits of normal faintly at 60 minutes. A mild cholecystitis would still be in the differential diagnosis correlate clinically.
[2022-11-19 11:21] LABS: ALT 54 U/L (10-49); AST 21 U/L (14-35); Albumin 4.7 d/dL (3.8-4.9); Albumin/Globulin Ratio 1.96 Ratio (1.60-3.17); Alkaline Phosphatase 64 U/L (41-126); BUN/Creat Ratio 14.33 Ratio (12.00-20.00); Blood Urea Nitrogen 12.9 mg/dL (9.0-27.0); Calcium 9.4 mg/dL (8.7-10.3); Carbon Dioxide 25.1 mmol/L (21.6-31.8); Chloride 103 mmol/L (96-109); Globulin 2.4 d/dL (1.6-3.3); Glucose 107 mg/dL (70-110); Potassium 4.1 mmol/L (3.5-5.5); Sodium 141 mmol/L (135-145); Total Bilirubin 0.3 mg/dL (0.3-1.2); Total Protein 7.1 d/dL (6.2-8.2)
--- NOTE | 2022-11-19 14:22 | P.PN ---
Subjective Progress Note Date: 11/19/22 patient is a 27-year-old gentleman with no significant past medical history presented to the ER because of abdominal pain. Patient stated that he was all right 2 days ago when he started having right-sided abdominal pain. Abdominal pain was intermittent, associated with nausea but no vomiting. Denies any altered bowel movements. Denies any blood in the stools. Denies any loss of appetite. Denies any fever or chills. Because of his abdominal pain, he came to ER Initial lab work done in the ER showed WBC was 9.7, hemoglobin 16, platelet count 300, sodium 142, potassium 4.5, BUN 10, creatinine 0.87, lactate 5.9 UA negative for infection Serum alcohol level less than 10 Ultrasound abdominal done showed hepatomegaly, correlate for hepatocellular disease. CT abdomen and pelvis done showed hepatomegaly, showed 1 mL lower pole renal calculus Patient admitted to medicine service 11/19. Patient seen and examined. States abdominal pain has slightly improved. Tolerating diet REVIEW OF SYSTEMS: CONSTITUTIONAL: No fever, no malaise,. CARDIOVASCULAR: No chest pain, no palpitations, no syncope. PULMONARY: No shortness of breath, no cough, GASTROINTESTINAL: As mentioned above NEUROLOGICAL: No headaches, no weakness, PHYSICAL EXAMINATION: GENERAL: The patient is alert and oriented x3, not in any acute distress. Well developed, well nourished. HEENT: Pupils are round and equally reacting to light. EOMI. No scleral icterus. No conjunctival pallor. Normocephalic, atraumatic. No pharyngeal erythema. No thyromegaly. CARDIOVASCULAR: S1 and S2 present. No murmurs, rubs, or gallops. PULMONARY: Chest is clear to auscultation, no wheezing or crackles. ABDOMEN: Soft, nontender, nondistended, normoactive bowel sounds. No palpable organomegaly. MUSCULOSKELETAL: No joint swelling or deformity. EXTREMITIES: No cyanosis, clubbing, or pedal edema. NEUROLOGICAL: Gross neurological examination did not reveal any focal deficits. SKIN: No rashes. Assessment and plan Abdominal pain Acute cystitis Lactic acidosis Hepatomegaly Nonobstructing left renal calculus Monitor vital signs Monitor CBC Monitor CMP Hepatitis A, B and C are nonreactive Continue IV fluids Continue antiemetics Continue pain management HIDA scan done showed gallbladder fills at upper limits of normal at 60 minutes. mild cholecystitis ID following Surgery following Labs and medication were reviewed.. Continue same treatment. Continue with symptomatic treatment. Resume home medication. Monitor labs and vitals. DVT and GI prophylaxis. Further recommendations as per clinical course of the patient Dictation was produced using [employer] dictation software. please excuse any gramma tical, word or spelling errors. Objective - Vital Signs Vital signs: Vital Signs Temp 98.2 F 11/19/22 06:44 Pulse 65 11/19/22 06:44 Resp 16 11/19/22 06:44 BP 127/81 11/19/22 06:44 Pulse Ox 95 11/19/22 00:41 FiO2 Intake & Output 11/18/22 11/19/22 11/19/22 18:59 06:59 18:59 Other: # Voids 1 2 1 - Labs CBC & Chem 7: 11/19/22 04:53 11/19/22 04:53
[2022-11-19 14:30] VITALS: BP 115/69; PULSE 54; TEMP 97.9
--- NOTE | 2022-11-19 14:35 | P.GSCN ---
History of Present Illness Consult date: 11/19/22 History of present illness: CHIEF COMPLAINT: Abdominal pain HISTORY OF PRESENT ILLNESS: This is a 27-year-old male who presented with right upper quadrant abdominal pain 2-3 days. He denies any nausea or vomiting. His pain did improve after bowel movement. He denies any fever chills or sweats. He had a gallbladder ultrasound that showed no evidence of gallstones. Did report hepatomegaly correlate for hepatocellular disease. Medicine service has ordered a HIDA scan and report states gallbladder fills at the upper limits of normal. A mild cholecystitis would still be in the differential. Patient's is currently tolerating diet. His pain has improved. PAST MEDICAL HISTORY: Seizure disorder, thyroid disorder PAST SURGICAL HISTORY: See below MEDICATIONS: See below ALLERGIES: See below SOCIAL HISTORY: No illicit drug use. REVIEW OF SYSTEMS: CONSTITUTIONAL: Denies fever or chills. HEENT: Denies blurred vision, vision changes, or eye pain. Denies hemoptysis CARDIOVASCULAR: Denies chest pain or pressure. RESPIRATORY: No shortness of breath. GASTROINTESTINAL: See HPI for pertinent findings HEMATOLOGIC: Denies bleeding disorders. GENITOURINARY: Denies any blood in urine or increased urinary frequency. SKIN: Denies pruitis. Denies rash. PHYSICAL EXAM: VITAL SIGNS: Reviewed GENERAL: Well-developed in no acute distress. HEENT: No sclera icterus. Extraocular movements grossly intact. Moist buccal mucosa. Head is atraumatic, normocephalic. No nasal drainage. ABDOMEN: Soft. Nondistended. Nontender NEUROLOGIC: Alert and oriented. Cranial nerves II through XII grossly intact. LABORATORY DATA: WBC 9.86 Hgb 15.1 platelets 308 Sodium 141 potassium is 4.1 creatinine 0.9 Total bili 0.3 AST 21 ALT 70 down to 54 alk phos 64 Lipase 47 Urinalysis negative Hepatitis panel negative serum alcohol level less than 10 Lactic acid 5.9 down to 1.5 IMAGING: CTA of abdomen and pelvis hepatomegaly correlate for hepatocellular disease/h epatic steatosis. Nonobstructing 1 mm lower pole left renal calculus. Gallbladder ultrasound hepatomegaly correlate for hepatocellular disease. No gallstones. HIDA scan gallbladder fills at the upper limits of normal family at 60 minutes. EF 53%. A mild cholecystitis would still be in the differential diagnosis ASSESSMENT: 1. Possible chronic cholecystitis 2. Right upper quadrant abdominal PLAN: -Recommend low-fat diet -Continue to monitor Physician [employer] note has been reviewed by physician. Signing provider agrees with the documented findings, assessment, and plan of care. Past Medical History Past Medical History: Seizure Disorder, Thyroid Disorder History of Any Multi-Drug Resistant Organisms: None Reported Past Surgical History: Ear Surgery Additional Past Surgical History / Comment(s): neck surgery Past Psychological History: No Psychological Hx Reported Smoking Status: Current every day smoker Past Alcohol Use History: Occasional Past Drug Use History: Marijuana Medications and Allergies Home Medications Medication Instructions Recorded Confirmed Type Levothyroxine Sodium [Synthroid] 25 mcg PO DAILY@49911/17/22 11/17/22 History lamoTRIgine [LaMICtal] 200 mg PO DAILY@49911/17/22 11/17/22 History Allergies Allergy/AdvReac Type Severity Reaction Status Date / Time Cephalosporins Allergy Rash/Hives Verified 11/17/22 19:42 Penicillins Allergy Rash/Hives Verified 11/17/22 19:42 Surgical - Exam Vital Signs Temp Pulse Resp BP Pulse Ox 98.4 F 67 16 139/85 98 11/17/22 17:02 11/17/22 17:02 11/17/22 17:02 11/17/22 17:02 11/17/22 17:02 Results - Labs 11/19/22 04:53 11/19/22 04:53
--- NOTE | 2022-11-23 11:57 | P.PN ---
Subjective Progress Note Date: 11/19/22 Principal diagnosis: Abdominal pain and hepatomegaly Patient is a 27-year-old male with a past medical history significant for heavy drinking few years ago still drinks but occasionally and also have a history of IV drug use with the patient mention he has quit patient presenting to the hospital last night for evaluation of increasing abdominal pain, patient did have a CT of abdominal pelvis CT shows hepatomegaly correlate for hepatocellular disease. On today's evaluation that is 11/19/2022, the patient is afebrile, the patient is breathing comfortably on room air , the patient denies chest pain or cough, patient was not able quadrant abdominal pain has much improved denies having nausea vomiting and no diarrhea Patient did have a white count of 9.86, creatinine 0.9 AST is mildly elevated, hepatitis panel negative Objective - Vital Signs Vital signs: Vital Signs Temp 98.2 F 11/19/22 06:44 Pulse 65 11/19/22 06:44 Resp 16 11/19/22 06:44 BP 127/81 11/19/22 06:44 Pulse Ox 95 11/19/22 00:41 FiO2 Intake & Output 11/18/22 11/19/22 11/19/22 18:59 06:59 18:59 Other: # Voids 1 2 1 - Exam GENERAL DESCRIPTION: Middle-age male lying in bed in no distress RESPIRATORY SYSTEM: Unlabored breathing , decreased breath sounds at bases HEART: S1 S2 regular rate and rhythm , ABDOMEN: Soft , no tenderness EXTREMITIES: No edema feet - Labs CBC & Chem 7: 11/19/22 04:53 11/19/22 04:53 Assessment and Plan (1) Hepatomegaly Status: Acute Code(s): R16.0 - HEPATOMEGALY, NOT ELSEWHERE CLASSIFIED SNOMED Code(s): 51832848 Plan: 1patient presented hospital right upper quadrant abdominal pain in this patient who also have a mild tenderness right upper quadrant area and a question of possible hepatocellular disease CT abdominal pelvis shows mostly hepatomegaly but did not mention any abnormality to the gallbladder patient did have mildly elevated ALT as well within the normal and the patient do have a risk factor for hepatitis however hepatitis B and C were negative as well as A 2-patient with a cephalosporin and penicillin allergy that will limit the number of antibiotics safe to use 3-patient did have a normal inflammatory markers and HIDA scan mention gallbladder fin is upper limits of normal general surgery has been consulted with recommendation 4-we will monitor the patient closely off antibiotic as no fever white count nor mal CRP is normal as well Dictation was produced using [employer] dictation software. please excuse any grammatical, word or spelling errors. Time with Patient: Less than 30
--- NOTE | 2022-11-28 10:49 | P.DS ---
Providers Date of admission: 11/17/22 22:21 Expected date of discharge: 11/28/22 Attending physician: Oleg Ochoa Consults: 11/18/22 10:15 Consult Physician Routine Consulting Provider: Stacey Starr Consult Reason/Comments: Hepatitis questionable Do you want consulting provider notified?: Yes 11/18/22 10:51 Consult Physician Routine Consulting Provider: Kal Ferguson Consult Reason/Comments: abdominal pain Do you want consulting provider notified?: Yes Primary care physician: [facility] Hospital Course: Discharge diagnoses; Abdominal pain Chronic cholecystitis Lactic acidosis Hepatomegaly Nonobstructing left renal calculus Hospital course; patient is a 27-year-old gentleman with no significant past medical history presented to the ER because of abdominal pain. Patient stated that he was all right 2 days ago when he started having right-sided abdominal pain. Abdominal pain was intermittent, associated with nausea but no vomiting. Denies any altered bowel movements. Denies any blood in the stools. Denies any loss of appetite. Denies any fever or chills. Because of his abdominal pain, he came to ER Initial lab work done in the ER showed WBC was 9.7, hemoglobin 16, platelet count 300, sodium 142, potassium 4.5, BUN 10, creatinine 0.87, lactate 5.9 UA negative for infection Serum alcohol level less than 10 Ultrasound abdominal done showed hepatomegaly, correlate for hepatocellular disease. CT abdomen and pelvis done showed hepatomegaly, showed 1 mL lower pole renal calculus Patient admitted to medicine service 11/19. Patient seen and examined. States abdominal pain has slightly improved. Tolerating diet. Surgery cleared the patient for discharge, recommend outpatient follow-up PHYSICAL EXAMINATION: GENERAL: The patient is alert and oriented x3, not in any acute distress. Well developed, well nourished. HEENT: Pupils are round and equally reacting to light. EOMI. No scleral icterus. No conjunctival pallor. Normocephalic, atraumatic. No pharyngeal erythema. No thyromegaly. CARDIOVASCULAR: S1 and S2 present. No murmurs, rubs, or gallops. PULMONARY: Chest is clear to auscultation, no wheezing or crackles. ABDOMEN: Soft, nontender, nondistended, normoactive bowel sounds. No palpable organomegaly. MUSCULOSKELETAL: No joint swelling or deformity. EXTREMITIES: No cyanosis, clubbing, or pedal edema. NEUROLOGICAL: Gross neurological examination did not reveal any focal deficits. SKIN: No rashes. Dictation was produced using [employer] dictation software. please excuse any grammatical, word or spelling errors. Patient Condition at Discharge: Stable Plan - Discharge Summary New Discharge Prescriptions: New HYDROcodone/APAP 5-325MG [[place] 5-325] 1 each PO Q6HR PRN #10 tab PRN Reason: Pain Continue Levothyroxine Sodium [Synthroid] 25 mcg PO DAILY@0500 lamoTRIgine [LaMICtal] 200 mg PO DAILY@0500 Discharge Medication List Levothyroxine Sodium [Synthroid] 25 mcg PO DAILY@0500 11/17/22 [History] lamoTRIgine [LaMICtal] 200 mg PO DAILY@05011/17/22 [History] HYDROcodone/APAP 5-325MG [[place] 5-325] 1 each PO Q6HR PRN #10 tab 11/19/22 [Rx] Follow up Appointment(s)/Referral(s): Alvaro Lyn MD [Primary Care Provider] - 1-2 days Kal Ferguson MD [STAFF PHYSICIAN] - 11/27/22 2:30 pm Patient Instructions/Handouts: Cholecystitis (GEN) Discharge Disposition: HOME SELF-CARE
== END 2022-11-19 16:10 | disposition home or self-care (01) ==
LOC: EC 16:59 → INTOOBSV 22:21 → 4SSUR 22:21 → UNDODISIN 11-19 16:10
PROVIDERS: ADMIT Hospitalist; ATTEND Hospitalist
DX: R10.11 Right upper quadrant pain (principal); R16.0 Hepatomegaly, not elsewhere classified; E86.0 Dehydration; E87.20 Acidosis, unspecified; K81.1 Chronic cholecystitis; N20.0 Calculus of kidney; G40.909 Epilepsy, unspecified, not intractable, without status epilepticus; F17.200 Nicotine dependence, unspecified, uncomplicated; Z79.890 Hormone replacement therapy; Z79.899 Other long term (current) drug therapy; Z88.0 Allergy status to penicillin; Z88.1 Allergy status to other antibiotic agents; Z87.898 Personal history of other specified conditions
CPT/HCPCS: 96361 ×2; 96376 ×2; 96374; 96375; 99285; 36415; 80053 ×2; 80048; 80074; 82150; 83605; 83690; 85025 ×3; 85610; 85730; 86140; 81003; 76705; 74174; 78227; G0378 ×3; G0480; A9537; J2060; J2270 ×3; J2405; J2805; J1885; C9113; Q9967; 80320